=== PATIENT | female | born 1980 | race Caucasian/White ===

== ENCOUNTER → 2016-09-22 | Outpatient (CLI) | payer OTHER ==
[~2016-09-22] MED LIST: ARIP2TAB PO; CITA40TA5 PO; DEXA1TAB5 PO; DEXA2TAB PO; GABA300C10 PO; GABA600T2 PO; GADOBUTROL 7.5 MMOL/7.5 ML VIAL ONE; LAMO100T5 PO; LAMO200T3 PO; LEVE100020 PO; LEVO125T45 PO; LEVO25TA39 PO; OXYC5CAP4 PO; PANT40TA3 PO
== END | disposition home or self-care (01) ==
LOC: CFH 07:20
PROVIDERS: ATTEND Radiology Radiation Oncology
DX: D32.0 Benign neoplasm of cerebral meninges (principal); G31.9 Degenerative disease of nervous system, unspecified
CPT/HCPCS: 70553; A9585

== ENCOUNTER → 2016-11-25 | Outpatient (CLI) | payer OTHER ==
[~2016-11-25] MED LIST changes: -ARIP2TAB PO; +ARIP2TAB2 PO; -GADOBUTROL 7.5 MMOL/7.5 ML VIAL ONE; -LEVO125T45 PO; +LEVO125T63 PO; -LEVO25TA39 PO; +LEVO25TA45 PO; +OXYC5CAP2 PO; -OXYC5CAP4 PO
== END | disposition home or self-care (01) ==
LOC: ROC 06:35
PROVIDERS: ATTEND Radiology Radiation Oncology
DX: Z08 Encounter for follow-up examination after completed treatment for malignant neoplasm (principal); D32.0 Benign neoplasm of cerebral meninges
CPT/HCPCS: 99213; G0463

== ENCOUNTER → 2017-12-10 | Outpatient (CLI) | payer OTHER | END | disposition home or self-care (01) | LOC: CFH 07:17 | PROVIDERS: ATTEND Radiology Radiation Oncology | DX: Z02.9 Encounter for administrative examinations, unspecified (principal) ==